=== PATIENT | female | born 1955 | race Two or more races ===

== ENCOUNTER 2019-01-01 01:07 | Emergency (ER) | payer OTHER ==
[~2019-01-01] VITALS: Ht 170.2 cm; Wt 61.2 kg
[2019-01-01 01:21] VITALS: BP 166/97
--- NOTE | 2019-01-01 01:30 | NUR ---
PT BIBS. COMP OF "HAVING CHEST PAIN WHILE BEING DETAINED" -SOB NOTED. -N/V -ACUTE DISTRESS. AOX4.
[2019-01-01] MEDS ORDERED: IBUPROFEN 600 MG TABLET PO ONE ×2 (01:53→02:00)
--- NOTE | 2019-01-01 02:02 | NUR ---
gave francis hutchins
== END 2019-01-01 02:36 ==
LOC: ER 01:09
DX: R07.89 Other chest pain (principal); I10 Essential (primary) hypertension; F41.9 Anxiety disorder, unspecified; E03.9 Hypothyroidism, unspecified; Z88.2 Allergy status to sulfonamides
CPT/HCPCS: 71045; 73130; 93005; 99283; A4606